=== PATIENT | male | born 1945 ===

== ENCOUNTER 2019-07-08 07:51 | Day surgery (SDC) | payer MEDICARE, BC ==
[~2019-07-08 07:51] MED LIST: Acetaminophen TAB* 325 MG ONE; Acetaminophen TAB* 325 MG PO ONE; Buffered Lidocaine 1% SYRIN* 1 ML/SYRINGE INTRADERM ONE; Famotidine IV* 10 MG/ML 2 ML (20 mg) IV ONE; Famotidine IV* 10 MG/ML 2 ML (20 mg) ONE; Lactated Ringers 1000 ML Bag* 1,000 ML IV SCH
[2019-07-08] MEDS ORDERED: fentaNYL* 50 MCG/ML 2 ML VIAL (100 MCG VIAL) ONE (08:51)
[2019-07-08] MEDS ORDERED: Midazolam* 1 MG/ML 2 ML VIAL (2 MG) ONE (08:51)
[2019-07-08] MEDS ORDERED: Bupivacaine 0.25% SDV* 30 ML ONE (09:06)
[2019-07-08] MEDS ORDERED: Propofol* 10 MG/ML 20 ML BTL ONE (09:22)
[2019-07-08] MEDS ORDERED: Ketorolac INJ* 30 MG/ML 1 ML VIAL ONE (09:22)
[2019-07-08] MEDS ORDERED: Lidocaine 2% PF * 5 ML VIAL ONE (09:22)
[2019-07-08] MEDS ORDERED: Dexamethasone IV* 4 MG/ML 1 ML (4 MG) ONE (09:22)
[2019-07-08] MEDS ORDERED: HYDROcodone/ACETAMIN 5-325 MG* 1 TAB PO PRN (09:42)
[2019-07-08] MEDS ORDERED: Naloxone* 0.4 MG/ML 1 ML VIAL IV PRN (09:42)
[2019-07-08] MEDS ORDERED: Ondansetron INJ* 2 MG/ML VIAL IV PRN (09:42)
[2019-07-08] MEDS ORDERED: fentaNYL* 50 MCG/ML 2 ML VIAL (100 MCG VIAL) IV PRN (09:42)
[2019-07-08] MEDS ORDERED: DiMENhydriNATE IV* 50 MG/ML VIAL IV PUSH PRN (09:42)
[2019-07-08 10:08] VITALS: BP 118/75
--- NOTE | 2019-07-09 02:42 | OP ---
DATE OF OPERATION: 07/08/19 [facility] DATE OF : 49 SURGEON: Elvis Winkler MD CAREER BASED INTERVENTION COORDINATOR: None. ANESTHESIOLOGIST: Dr. Larios. ANESTHESIA: Local MAC. 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 POST-OP DIAGNOSIS: Severe left index and ring trigger fingers. OPERATIVE PROCEDURE: 1. Left index trigger finger release. 2. Left ring trigger finger release. INDICATIONS: Jose Alfredo has very severe trigger fingers; he can even hardly close the hand because of them; the index finger particularly is getting very stuck. We talked about treatment options. He wants to proceed. ESTIMATED BLOOD LOSS: 2 mL. COMPLICATIONS: None. FINDINGS: See above and below. DESCRIPTION OF PROCEDURE: Mr. Esquivel was seen in the preoperative holding area. The correct side, site, and procedure were identified. We came back to the operating room. The arm was prepped and draped in the usual fashion. Time- out was performed. I already anesthetized the operative area with 0.25% plain Marcaine. I made a 1 cm longitudinal incision over the A1 pulleys of the index finger and the ring finger. Full thickness flaps were bluntly raised off of both tendon sheaths. I began on the index finger and I placed the Ragnell retractors. Once I had good visualization of the tendon sheath, I incised the A1 trista longitudinally. It was very thickened. The release was completed distally and proximally with tenotomy scissors. The A2 trista was preserved. I then placed the retractors on the ring finger. In like manner, I incised longitudinally the A1 trista. The release was completed distally and proximally. The A2 trista was preserved. I then had him flex and extend the fingers multiple times. There was no more triggering. Everything was looking good. The wounds were irrigated out and closed with 4-0 nylon suture. Soft dressings were applied and he was taken to the recovery room in stable condition. [id number]/[facility] #: [id number] [facility]ITALRobert
== END 2019-07-08 10:30 | disposition home or self-care (01) ==
LOC: OREAST 07:51
PROVIDERS: ATTEND Orthopaedic Surgery Hand Surgery
DX: M65.342 Trigger finger, left ring finger (principal); M65.322 Trigger finger, left index finger; K50.90 Crohn's disease, unspecified, without complications; K52.9 Noninfective gastroenteritis and colitis, unspecified; Z87.891 Personal history of nicotine dependence
CPT/HCPCS: A9270-GY; J1100; J1885; J2250; J2704; J3010; J3490